=== PATIENT | female | born 1980 | race Caucasian/White ===

== ENCOUNTER 2020-11-01 15:18 | Outpatient (CLI) | payer OTHER, MEDICAID, SELFPAY ==
--- NOTE | ~2020-11-01 | MM_ITS ---
EXAMINATION: MM screening [facility] BI w max HISTORY: Screening mammogram TECHNIQUE: Craniocaudal and mediolateral oblique 3-D tomosynthesis images were obtained and synthetic 2-D images were generated. CAD analysis was submitted and interpreted. COMPARISON: 10/22/2019, 10/01/2019 BREAST PARENCHYMAL COMPOSITION: There are scattered areas of fibroglandular density. FINDINGS: There is been interval right breast biopsy. There is no evidence of suspicious mass, calcif ication, or architectural distortion to suggest malignancy in either breast. There has been no suspic ious interval change. IMPRESSION: 1. No mammographic evidence of malignancy. 2. Recommend routine screening mammography in one year. BI-RADS Category 1: Negative Reviewed, dictated and finalized at location A. STERED NURSE STEP DOWN
== END 2020-11-01 15:19 | disposition home or self-care (01) ==
LOC: ANHIMG 15:20
PROVIDERS: PCP Internal Medicine; Visit Provider Obstetrics & Gynecology
DX: Z12.31 Encounter for screening mammogram for malignant neoplasm of breast (principal)
CPT/HCPCS: 77063; 77067

== ENCOUNTER 2021-01-19 17:33 | Emergency (ER) | payer OTHER, MEDICAID, SELFPAY ==
[2021-01-19 17:41] VITALS: BP 187/85; PULSE 80; RESP 20; TEMP 37; O2SAT 100
--- NOTE | 2021-01-19 18:20 | ED.SKABFB ---
HPI - Skin/Abscess/Foreign Bdy General Chief complaint: Skin/Abscess/Foreign Body Stated complaint: RASH ON FACE Source: patient Mode of arrival: ambulatory Limitations: no limitations History of Present Illness HPI narrative: Patient is a 40-year-old female who presents complaining of a rash to left forehead x1 day. She reports itching and burning sensation. She denies all other complaints. She denies using [id number] for relief prior to arrival. She denies significant medical history. MD complaint: rash Related Data Home Medications Medication Instructions Recorded Confirmed Multiple Vitamin, Womens 1 tablet PO DAILY 09/21/19 09/24/19 lisdexamfetamine [Vyvanse] 50 mg PO DAILY 09/21/19 09/24/19 dextroamphetamine-amphetamine PO 01/19/21 Allergies Allergy/AdvReac Type Severity Reaction Status Date / Time No Known Allergies Allergy Unverified 09/24/19 10:37 Review of Systems Review of Systems: Narrative: CONSTITUTIONAL: Denies fever, chills, or sweats. EYES: Denies visual changes, redness, or discharge. ENT: Denies rhinorrhea, congestion, sore throat, or otalgia. CARDIOVASCULAR: Denies chest pain, palpitations, or edema. RESPIRATORY: Denies cough or dyspnea. GASTROINTESTINAL: Denies abdominal pain, nausea, vomiting, or diarrhea. GENITOURINARY: Denies dysuria or hematuria. SKIN: Rash to left forehead MUSCULOSKELETAL: Denies back pain, joint pain, or myalgia. NEUROLOGIC: Denies headache, numbness, dizziness, or weakness. PSYCHIATRIC: Denies anxiety or depression. [facility] Past Medical History Medical History Abnormal uterine bleeding Overweight (BMI 25.0-29.9) Family History Family History (Updated 01/19/21 @ 18:22 by OLIVER Mittal) Other No significant family history Social History Social History (Updated 01/19/21 @ 18:22 by OLIVER Mittal) Smoking status: Never smoker Alcohol intake: never Substance use: never Living arrangements: with family Gender identity (if verbalized by the patient): Female Exam Narrative: Exam Narrative: GENERAL: Well-appearing, well-nourished, and in no acute distress. HEAD: Normocephalic, atraumatic. EYES: EOMI. No redness or drainage. Conjunctiva are normal. ENT: Mucous membranes pink and moist. CHEST: No respiratory distress. HEART: Regular rate and rhythm. EXTREMITIES: Normal range of motion. No edema. SKIN: Cluster of fluid-filled blisters to left forehead NEURO: No focal deficits. Alert and oriented x3. Gait steady. PSYCH: Normal affect. No signs of depression or anxiety. Course Vital Signs Vital signs: Vital Signs Temperature 37.0 C 01/19/21 17:41 Pulse Rate 80 01/19/21 17:41 Respiratory Rate 20 01/19/21 17:41 Blood Pressure 187/85 H 01/19/21 17:41 Pulse Oximetry 100 01/19/21 17:41 Temperature 37.0 C 01/19/21 17:41 Pulse Rate 80 01/19/21 17:41 Respiratory Rate 20 01/19/21 17:41 Blood Pressure 187/85 H 01/19/21 17:41 Pulse Oximetry 100 01/19/21 17:41 Reviewed-patient is informed that they may have pre-hypertension or hypertension based on a blood pressure reading. I recommend the patient call the primary care provider listed on their discharge instructions or a physician of their choice this week to arrange follow-up for further evaluation of possible pre-hypertension or hypertension. MDM - Skin/Abscess/Foreign Bdy MDM Narrative Medical decision making narrative: Patient appears to have herpes zoster to left forehead. Discussed with patient starting medication, not touching eyes and to follow-up immediately if she feels redness or irritation to left eye. Patient agrees with plan of care. Prescription placed at this time. Patient is stable for discharge home with outpatient follow-up as discussed. Differential Diagnosis Differential diagnosis: Likely abscess of skin or subcutaneous tissue, herpes zoster, cellulitis, eczema, impetigo
== END 2021-01-19 18:23 | disposition home or self-care (01) ==
PROVIDERS: Emergency Provider Nurse Practitioner; PCP Internal Medicine
DX: B02.9 Zoster without complications (principal)
CPT/HCPCS: 99213; G0463

== ENCOUNTER 2021-01-20 11:49 | Emergency (ER) | payer OTHER, MEDICAID, SELFPAY ==
[2021-01-20 11:51] VITALS: BP 196/109; PULSE 85; RESP 16; TEMP 36.6; O2SAT 98
--- NOTE | 2021-01-20 12:32 | ED.EYEPROB ---
HPI - Eye Problem General Chief complaint: Eye Problems Stated complaint: shingles Time Seen by Provider: 01/20/21 12:17 Source: patient Mode of arrival: ambulatory Limitations: no limitations History of Present Illness HPI Narrative: Patient is a 40-year-old female complaining of pain around her eye, described as burning, accompanied by a mild rash, started 3 days ago, seen in urgent care was diagnosed with shingles, started on acyclovir yesterday. Patient denies any visual disturbance, such as blurred vision or loss of vision. Patient states that she is here because she was advised to come to the emergency room if pain persist. Related Data Home Medications Medication Instructions Recorded Confirmed Multiple Vitamin, Womens 1 tablet PO DAILY 09/21/19 09/24/19 dextroamphetamine-amphetamine PO 01/19/21 Allergies Allergy/AdvReac Type Severity Reaction Status Date / Time No Known Allergies Allergy Verified 01/20/21 11:58 Review of Systems Review of Systems: All systems reviewed & are unremarkable except as noted in HPI and below PMFSH Past Medical History Medical History Abnormal uterine bleeding Overweight (BMI 25.0-29.9) Family History Family History Other No significant family history Social History Social History Smoking status: Never smoker Alcohol intake: never Substance use: never Gender identity (if verbalized by the patient): Male Exam Const: General: no acute distress Orientation/consciousness: patient oriented x3 HENMT: Ears: TM's normal bilaterally General nose exam: Normal external nose present, Normal nares present, no nasal discharge noted and no epistaxis Face and sinus: sinuses tender and no sinus tenderness Mouth: Yes moist mucous membranes Other: No significant periorbital swelling or redness, very mild left upper lid swelling with erythema. Pain on palpation periorbital area. Eyes: Conjunctivae: conjunctivae normal Pupils: Equal, round and reactive pupils present EOM: EOMs intact bilaterally Direct Ophthalmoscopy: no photophobia Neck: Neck: normal visual inspection and no lymphadenopathy Resp: Effort & Inspection: normal respiratory effort Course Vital Signs Vital signs: Vital Signs Temperature 36.6 C 01/20/21 11:51 Pulse Rate 85 01/20/21 11:51 Respiratory Rate 16 01/20/21 11:51 Blood Pressure 196/109 H 01/20/21 11:51 Pulse Oximetry 98 01/20/21 11:51 Temperature 36.6 C 01/20/21 11:51 Pulse Rate 85 01/20/21 11:51 Respiratory Rate 16 01/20/21 11:51 Blood Pressure 196/109 H 01/20/21 11:51 Pulse Oximetry 98 01/20/21 11:51 MDM - Eye Problem MDM Narrative Medical decision making narrative: Pain is due to neuropathic pain from shingles, she does not have any visual changes or disturbance, 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 Discharge Plan Discharge Clinical Impression: Herpes zoster ophthalmicus of left eye Patient Disposition: Home, Self-Care Condition: Stable Instructions: Shingles (ED) Prescriptions: No Action dextroamphetamine-amphetamine 10 mg capsule,extended release 24hr PO RF: 0 acyclovir 800 mg tablet 800 mg PO Q4H 7 Days Qty: 42 RF: 0 Multiple Vitamin, Womens 1 tablet PO DAILY RF: 0 Follow-up/Referrals: Alize,Nolan Yuan MD [Primary Care Provider] - 01/22/21 Time of Disposition: 12:44
[2021-01-20] MEDS: KETOROLAC 30 MG/ML VIAL (*BKC) IM (12:49)
== END 2021-01-20 12:58 | disposition home or self-care (01) ==
PROVIDERS: Emergency Provider Emergency Medicine; PCP Internal Medicine
DX: B02.30 Zoster ocular disease, unspecified (principal); E66.3 Overweight; Z68.28 Body mass index [BMI] 28.0-28.9, adult
CPT/HCPCS: 96372; 99283; J1885

== ENCOUNTER 2021-08-05 15:15 | Emergency (ER) | payer OTHER, MEDICAID, SELFPAY ==
[2021-08-05 15:26] VITALS: BP 143/92; PULSE 77; RESP 16; TEMP 36.5; O2SAT 100
--- NOTE | 2021-08-05 15:26 | ED.URI ---
HPI - URI/Sore Throat General Chief Complaint: Upper Respiratory Infection Stated Complaint: sore throat Time Seen by Provider: 08/05/21 15:26 Source: patient and RN notes reviewed History of Present Illness HPI Narrative: Patient is a 40-year-old female who presents the urgent care with complaints of a sore throat for the last 3 days. 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 Patient denies of any known exposure to strep or Covid. States that she has not had her Covid vaccine. Denies of fever, chills, nausea, vomiting. Patient states her pain is worse when she wakes up and seems to improve throughout the day. Patient has not taken anything [id number] for her symptoms. No other acute complaints. No acute distress noted. Patient aware of the plan of care. Some parts of this dictation were generated by voice recognition software and may contain typographical and/or grammatical inaccuracies. Related Data Home Medications Medication Instructions Recorded Confirmed Multiple Vitamin, Womens 1 tablet PO DAILY 09/21/19 08/05/21 dextroamphetamine-amphetamine 10 mg PO DAILY 01/19/21 08/05/21 Allergies Allergy/AdvReac Type Severity Reaction Status Date / Time No Known Allergies Allergy Verified 08/05/21 15:23 Review of Systems Review of Systems: CONSTITUTIONAL: Denies fever, chills, or sweats. EYES: Denies visual changes, redness, or discharge. ENT: Denies rhinorrhea, congestion, otalgia. Reports of sore throat and postnasal drainage CARDIOVASCULAR: Denies chest pain, palpitations, or edema. RESPIRATORY: Denies cough or dyspnea. GASTROINTESTINAL: Denies abdominal pain, nausea, vomiting, or diarrhea. GENITOURINARY: Denies dysuria or hematuria. SKIN: Denies rash or itching. MUSCULOSKELETAL: Denies back pain, joint pain, or myalgia. NEUROLOGIC: Denies headache, numbness, or weakness. All other systems reviewed are negative, except as documented in HPI. [facility] Past Medical History Medical History Abnormal uterine bleeding Overweight (BMI 25.0-29.9) Surgical History Surgical History History of knee surgery Family History Family History Other No significant family history Social History Social History Smoking status: Never smoker Alcohol intake: never Substance use: never Gender identity (if verbalized by the patient): Male Comments At the time of my signature, I reviewed and agree with the nursing past medical, surgical, social, and family history. There is no relevant family history pertinent to the patient complaint. Exam Narrative: GENERAL: This is a well-nourished, well-developed patient, in no apparent distress. HEAD: normocephalic, atraumatic. EYES: PERRL. Sclera clear/white. Vision is grossly intact. EARS: External ears normal, auditory canals clear and without drainage, TMs normal without perforation. Hearing grossly intact. NOSE: External nose normal with no obvious nasal discharge, nares without redness, no rhinorrhea. THROAT: Mucous membranes moist, posterior pharynx clear. Mild postnasal drainage NECK: Neck supple, non-tender without lymphadenopathy, masses or thyromegaly. CARDIOVASCULAR: Regular rate and rhythm without murmurs, gallops, or rubs. RESPIRATORY: Clear to auscultation. Breath sounds equal bilaterally. No wheezes, rales, or rhonchi. SKIN: warm, intact with no suspicious lesions or rash, good texture and turgor. NEURO: awake, alert, and oriented to person, place and time. There were no obvious focal neurologic abnormalities. EXTREMITIES: No clubbing, cyanosis, or edema. No joint tenderness, effusion, or edema noted. No calf tenderness. Negative Homans sign bilaterally. BACK: Nontender without deformity or crepitance.
== END 2021-08-05 15:43 | disposition home or self-care (01) ==
PROVIDERS: Emergency Provider Nurse Practitioner Family; PCP Internal Medicine
DX: J02.9 Acute pharyngitis, unspecified (principal)
CPT/HCPCS: 87081; 87880; 99213; G0463

== ENCOUNTER 2021-11-22 16:28 | Outpatient (CLI) | payer OTHER, MEDICAID, SELFPAY ==
--- NOTE | ~2021-11-22 | MM_ITS ---
EXAMINATION: MM screening [facility] BI w max HISTORY: Screening mammogram TECHNIQUE: Craniocaudal and mediolateral oblique 3-D tomosynthesis images were obtained and synthetic 2-D images were generated. CAD analysis was submitted and interpreted. COMPARISON: 11/01/2020, 10/22/2019, 09/21/2019 BREAST PARENCHYMAL COMPOSITION: There are scattered areas of fibroglandular density. FINDINGS: RIGHT BREAST: There is no evidence of suspicious mass, calcification, or architectural distortion to suggest malignancy. There has been no significant interval change. LEFT BREAST: There is a possible mass in the middle third of the central breast 6 cm from the nipple. IMPRESSION: 1. Possible left breast mass 2. Additional mammographic views and possible breast ultrasound are recommended. BI-RADS Category 0: Incomplete: Needs additional imaging evaluation. Reviewed, dictated and finalized at location A. T PILE DRIVER OPERATOR IMPRESSION: 1. Possible left breast mass 2. Additional mammographic views and possible breast ultrasound are recommended . BI-RADS Category 0: Incomplete: Needs additional imaging evaluation.
== END 2021-11-22 16:29 | disposition home or self-care (01) ==
LOC: ANHIMG 16:30
PROVIDERS: PCP Internal Medicine; Visit Provider Obstetrics & Gynecology
DX: Z12.31 Encounter for screening mammogram for malignant neoplasm of breast (principal); R92.8 Other abnormal and inconclusive findings on diagnostic imaging of breast
CPT/HCPCS: 77063; 77067

== ENCOUNTER 2021-12-17 12:33 | Outpatient (CLI) | payer OTHER, MEDICAID, SELFPAY ==
--- NOTE | ~2021-12-17 | MMUS_ITS ---
EXAMINATION: MM diagnostic raad LT w max, US breast LT complete HISTORY: Follow-up left breast asymmetries TECHNIQUE: Additional 3-D tomosynthesis images of the left breast were performed and synthetic 2-D im ages were generated. CAD analysis was submitted and interpreted. High resolution left complete breast ultrasound was performed. COMPARISON: Comparison to multiple prior studies sequentially, with oldest reviewed study dated 09/17. BREAST PARENCHYMAL COMPOSITION: Breast composed of scattered areas of fibroglandular density. FINDINGS: MAMMOGRAPHIC FINDINGS: There are no suspicious masses, calcifications or architectural distortion. The nodular asymmetry see n on prior examination are not apparent with spot compression or mediolateral views. ULTRASOUND: Complete left US of all 4 quadrants of the left breast and retroareolar region was reviewed. Normal h eterogeneous echotexture without focal solid or cystic mass. IMPRESSION: 1. No evidence for malignancy in the left breast. 2. Routine yearly screening mammogram and regular clinical breast examination are recommended. BI-RADS Category 1: Negative Reviewed, dictated and finalized at location A. RSTATE BUS DRIVER IMPRESSION: 1. No evidence for malignancy in the left breast. 2. Routine yearly screening mammogram and regular clinical breast examination a re recommended. BI-RADS Category 1: Negative
== END 2021-12-17 12:34 | disposition home or self-care (01) ==
LOC: ANHIMG 12:34
PROVIDERS: PCP Internal Medicine; Visit Provider Obstetrics & Gynecology Gynecology
DX: R92.8 Other abnormal and inconclusive findings on diagnostic imaging of breast (principal)
CPT/HCPCS: 76641; 77061; 77065; G0279

== ENCOUNTER 2022-12-19 16:48 | Outpatient (CLI) | payer OTHER, MEDICAID, SELFPAY ==
--- NOTE | ~2022-12-19 | MM_ITS ---
EXAMINATION: MM screening [facility] BI w max HISTORY: Screening TECHNIQUE: Craniocaudal and mediolateral oblique 3-D tomosynthesis images were obtained and synthetic 2-D images were generated. CAD analysis was submitted and interpreted. COMPARISON: Comparison to multiple prior studies sequentially, with oldest reviewed study dated 09/17. BREAST PARENCHYMAL COMPOSITION: There are scattered areas of fibroglandular density. FINDINGS: There is no evidence of suspicious mass, calcification, or architectural distortion to sugg est malignancy in either breast. There has been no suspicious interval change. IMPRESSION: 1. No mammographic evidence of malignancy. 2. Recommend routine screening mammography in one year. BI-RADS Category 1: Negative Reviewed, dictated and finalized at location A. [place] SALES ASSOCIATE BILINGUAL
== END 2022-12-19 16:49 | disposition home or self-care (01) ==
PROVIDERS: PCP Internal Medicine; Visit Provider Nurse Practitioner
DX: Z12.31 Encounter for screening mammogram for malignant neoplasm of breast (principal)
CPT/HCPCS: 77063; 77067

== ENCOUNTER → 2023-08-12 15:55 | Outpatient (CLI) | payer OTHER, MEDICAID, SELFPAY ==
--- NOTE | ~2023-08-12 | MR_ITS ---
EXAMINATION: MR lumbar spine wo con DATE: 08/12/2023 16:27 INDICATION: Right-sided low back pain that radiates to the right hip. Right leg numbness. TECHNIQUE: Magnetic resonance imaging (MRI) of the lumbar spine was performed without intravenous con trast. Sequences included sagittal T2-weighted FSE, sagittal T2-weighted FS FSE, sagittal T1-weighted FSE, and axial T2-weighted FSE. COMPARISON: None FINDINGS: Bone alignment is normal. Vertebral body heights are normal. There is mildly decreased disc height at L5-S1. The distal spinal cord signal intensity is normal. The conus medullaris is at L2. T he following disc levels are specifically discussed: L1-L2: The disc does not extend beyond the endplate margin. There is mild bilateral facet joint osteo arthritis. There is no neural foraminal stenosis. There is no central canal stenosis. L2-L3: The disc is bulging and has an annular fissure. There is mild bilateral facet joint osteoarthr itis. There is mild bilateral neural foraminal stenosis. There is mild central canal stenosis. L3-L4: The disc is bulging and has an annular fissure. There is mild right and severe left facet join t osteoarthritis. There is mild bilateral neural foraminal stenosis. There is mild central canal sten osis. L4-L5: The disc is bulging and has an annular fissure. There is severe right and moderate left facet joint osteoarthritis. There is mild bilateral neural foraminal stenosis. There is mild central canal stenosis. L5-S1: The disc is bulging and has an annular fissure. There is moderate bilateral facet joint osteoa rthritis. There is mild bilateral neural foraminal stenosis. There is mild central canal stenosis. IMPRESSION: 1. Mild lumbar spondylosis. Reviewed, dictated and finalized at location E. IMPRESSION: 1. Mild lumbar spondylosis.
== END ==
PROVIDERS: PCP Nurse Practitioner Family; Visit Provider Nurse Practitioner Family
DX: M47.26 Other spondylosis with radiculopathy, lumbar region (principal)
CPT/HCPCS: 72148

== ENCOUNTER 2023-10-30 06:55 | Emergency (ER) | payer OTHER, MEDICAID, SELFPAY ==
[2023-10-30] VITALS (18 sets, daily range): BP systolic 163–232; BP diastolic 80–132; PULSE 80–106; RESP 13–32; O2SAT 96–100
--- NOTE | 2023-10-30 07:06 | ECG_ITS ---
Measurements Intervals [place] Rate: 79 P: 37 VT: 158 QRS: -2 QRSD: 82 T: 30 QT: 342 QTc: 394 Interpretive Statements SINUS RHYTHM NORMAL ECG NO PREVIOUS ECG AVAILABLE FOR COMPARISON Electronically Signed On 10-30-2023 14:01:55 DIGITAL STRATEGIST by Thiago Villasenor M.D.
--- NOTE | 2023-10-30 07:23 | ED.GENADULT ---
HPI - General Adult General Chief complaint: Recheck/Abnormal Lab/Rx Stated complaint: high blood pressure Time Seen by Provider: 10/30/23 07:02 History of Present Illness HPI narrative: 43-year-old female presenting to the emergency department for complaint of hypertension. Patient does have history of high blood pressure and does take losartan. Patient normally takes 25 mg of losartan at nighttime. Patient noticed that her blood pressures have been running higher over the past few days. Patient was told to double up her dose last night and when she woke up this morning she found that her blood pressure was elevated. Patient does complain of some chest tightness. Patient denies any prior history of PR. Patient does not recall ever having a stress test. Related Data Home Medications Medication Instructions Recorded Confirmed Multiple Vitamin, Womens 1 tablet PO DAILY 09/21/19 08/05/21 dextroamphetamine-amphetamine ER 10 mg PO DAILY 01/19/21 08/05/21 10 mg 24hr capsule,extend release Allergies Allergy/AdvReac Type Severity Reaction Status Date / Time No Known Allergies Allergy Verified 08/05/21 15:23 Review of Systems Review of Systems: All systems reviewed & are unremarkable except as noted in HPI and below PMFSH Past Medical History Medical History Abnormal uterine bleeding Overweight (BMI 25.0-29.9) Surgical History Surgical History History of knee surgery Family History Family History Other No significant family history Social History Social History Smoking status: Never smoker Alcohol intake: never Substance use: never Living arrangements: with family Gender identity (if verbalized by the patient): Male Exam Narrative: APPEARANCE: Well appearing, no pain, no distress, well-nourished. HEAD: normocephalic, atraumatic. EYES: PERRLA/EOMI, conjunctivae clear. NOSE: Normal no drainage EARS:TMS clear with good light reflex. THROAT: Pharynx clear, no exudate. NECK: Supple. No adenopathy, no masses. RESPIRATORY: Airway patent, respirations nonlabored. Clear to auscultation bilaterally, no rales, rhonchi, wheezing. CARDIOVASCULAR: Regular rate and rhythm without murmurs rubs or gallops. ABDOMINAL: Soft, nontender, nondistended, normal bowel sounds MUSCULOSKELETAL: Moves all extremities. Strength/ROM intact, No edema, No calf tenderness. NEURO: Alert. Cranial nerves II through XII intact. Grossly intact SKIN: Warm, dry. Normal Color Course Course Emergency Course: 43-year-old female presents to the emergency department for evaluation of elevated blood pressure. Patient's EKG shows no evidence acute STEMI and patient had negative serial troponins. Patient is afebrile with no leukocytosis and a stable hemoglobin. No significant electrolyte abnormalities. patient was treated with hydrochlorothiazide and this did help her blood pressure. Patient was also treated with Ativan for some underlying anxiety. Patient was negative for influenza RSV and for COVID. I discussed the case with the physician on-call for her primary care physician and he did recommend starting the patient on amlodipine. Patient's 1st dose was given in the ED. patient was updated on the results of her workup and the plan for treatment at home. Patient was comfortable with the plan for discharge and close follow-up. Vital Signs Vital signs: Vital Signs Pulse Oximetry 99 10/30/23 07:02 Pulse Rate 106 H 10/30/23 13:00 Respiratory Rate 19 10/30/23 13:00 Blood Pressure 167/80 H 10/30/23 13:00 Pulse Oximetry 98 10/30/23 13:00 Oxygen Delivery Room Air 10/30/23 07:25 Medical Decision Making Differential Diagnosis Differential Diagnosis: hypertensive emergency, hypertensive anisha
[2023-10-30] MEDS: hydrALAZINE HCL 20 MG/ML VIAL 10 MG IV PUSH ×2 (07:50→10:41)
[2023-10-30 07:53] LABS: Basophils Absolute Auto 0.1 K/mm3 (0.0-0.1); Basophils Percent Auto 0.9 % (0.2-1.2); Eosinophils Absolute Auto 0.2 K/mm3 (0-0.3); Eosinophils Percent Auto 3.5 % (0-4.4); Hematocrit 40.8 % (37.0-47.0); Hemoglobin 13.7 g/dL (12.0-15.0); Immature Granulocyte Absolute 0.01 K/mm3 (0.00-0.031); Immature Granulocyte Percent A 0.2 % (0-0.5); Lymphocytes Absolute Auto 1.74 K/mm3 (0.9-3.2); Lymphocytes Percent Auto 32.2 % (18.3-44.2); Mean Corpuscular HGB Conc 33.6 g/dl (32-36); Mean Corpuscular Hemoglobin 32.5 pg (26-34); Mean Corpuscular Volume 96.9 fl (80-100); Mean Platelet Volume 8.6 fl (7.4-10.4); Monocytes Absolute Auto 0.4 K/mm3 (0.1-0.6); Monocytes Percent Auto 7.8 % (2.6-8.5); Neutrophils Percent Auto 55.4 % (45.5-73.1); Platelet Count Result 395 k/mm3 (150-375); Red Blood Count 4.21 M/mm3 (4.2-5.4); Red Cell Distribution Width 11.9 % (11.5-14.5); White Blood Count 5.4 K/mm3 (4.5-10.0)
[2023-10-30 07:53] LABS: Influenza A QL RT-PCR Negative (Negative); Influenza B QL RT-PCR Negative (Negative); RSV RNA, RT-PCR Negative (Negative); SARS-CoV-2 RNA PCR Negative (Negative)
[2023-10-30 07:58] LABS: INR 0.8; Prothrombin Time 11.8 Seconds (11.1-14.7)
[2023-10-30 07:59] LABS: Partial Thromboplastin Time 25.8 SECONDS (22.3-36.8)
[2023-10-30 08:36] LABS: Alanine Aminotransferase 25 U/L (6-35); Albumin Level 3.9 g/dL (3.5-5.1); Alkaline Phosphatase 54 U/L (38-126); Anion Gap 6 mmol/L (8-16); Aspartate Amino Transferase 27 U/L (14-36); Bilirubin,Total 0.7 mg/dL (0.2-1.3); Blood Urea Nitrogen 15 mg/dL (7-17); Carbon Dioxide 26 mmol/L (22-30); Chloride 106 mmol/L (98-107); Estimated CRCL calculation 66 ml/min; Estimated Glomerular Filt Rate > 60; Glucose 97 mg/dL (65-110); Potassium 4.1 mmol/L (3.4-5.0); Sodium 138 mmol/L (137-145)
[2023-10-30 08:47] LABS: Troponin I < 0.012 ng/mL (0.000-0.034)
[2023-10-30 09:04] LABS: Appearance Urine Clear (Clear); Bacteria Urine None Seen /hpf; Bilirubin Urine Negative (Negative); Blood Urine 3+ (Negative); Color Urine Yellow (Yellow); Glucose Urine UA Negative (Negative); Ketones Urine Negative (Negative); Leukocyte Esterase Ur Negative LEU/UL (Negative); Nitrate Urine Negative (Negative); Non Pathogenic Casts 0-2; Protein Urine Negative (Negative); RBC Urine >100 /hpf (0-2); Squamous Epithelial Cell Urine None seen /hpf (Few); Urobilinogen Urine 0.2 mg/dL (<2.0); WBC Urine 0-5 /hpf; pH Urine 6.5 (5.0-9.0)
[2023-10-30 09:16] LABS: Add Urine Microscopic? YES
[2023-10-30] MEDS: amLODIPine BESYLATE 5 MG TABLET PO (09:39)
--- NOTE | 2023-10-30 11:30 | PC.NURSE ---
pt c/o feeling flushed and having headache. pt crying. ativan sangita per order.
[2023-10-30] MEDS: LORazepam (*CRX) 1 MG TABLET PO (11:32)
[2023-10-30 11:48] LABS: Troponin I < 0.012 ng/mL (0.000-0.034)
== END 2023-10-30 13:01 | disposition home or self-care (01) ==
PROVIDERS: Emergency Provider Emergency Medicine; PCP Nurse Practitioner Family
DX: I10 Essential (primary) hypertension (principal); Z20.822 Contact with and (suspected) exposure to COVID-19; E66.3 Overweight; Z68.28 Body mass index [BMI] 28.0-28.9, adult
CPT/HCPCS: 36415; 80053; 81001; 84484; 85025; 85610; 85730; 87637; 93005; 96374; 96376; 99284; A9270; J0360

== ENCOUNTER 2024-02-02 15:42 | Outpatient (CLI) | payer OTHER, MEDICAID, SELFPAY ==
--- NOTE | ~2024-02-02 | MM_ITS ---
EXAMINATION: MM screening [facility] BI w max HISTORY: Screening TECHNIQUE: Craniocaudal and mediolateral oblique 3-D tomosynthesis images were obtained and synthetic 2-D images were generated. CAD analysis was submitted and interpreted. COMPARISON: Comparison to multiple prior studies sequentially, with oldest reviewed study dated 09/17. BREAST PARENCHYMAL COMPOSITION: Not dense: There are scattered areas of fibroglandular density. FINDINGS: There is no evidence of suspicious mass, calcification, or architectural distortion to sugg est malignancy in either breast. There has been no suspicious interval change. IMPRESSION: 1. No mammographic evidence of malignancy. 2. Recommend routine screening mammography in one year. BI-RADS Category 1: Negative Reviewed, dictated and finalized at location A.
== END 2024-02-02 15:43 ==
LOC: MICIMG 15:44
PROVIDERS: PCP Nurse Practitioner Family; Visit Provider Obstetrics & Gynecology Gynecology
DX: Z12.31 Encounter for screening mammogram for malignant neoplasm of breast (principal)
CPT/HCPCS: 77063; 77067

== ENCOUNTER 2025-02-04 10:32 | Outpatient (CLI) | payer OTHER, MEDICAID, SELFPAY ==
--- NOTE | ~2025-02-04 | MM_ITS ---
EXAMINATION: MM screening [facility] BI w max HISTORY: Screening TECHNIQUE: Craniocaudal and mediolateral oblique 3-D tomosynthesis images were obtained and synthetic 2-D images were generated. CAD analysis was submitted and interpreted. COMPARISON: Comparison to multiple prior studies sequentially, with oldest reviewed study dated 10/17. BREAST PARENCHYMAL COMPOSITION: Not Dense: The breasts are almost entirely fatty. FINDINGS: There is no evidence of suspicious mass, calcification, or architectural distortion to sugg est malignancy in either breast. There has been no suspicious interval change. IMPRESSION: 1. No mammographic evidence of malignancy. 2. Recommend routine screening mammography in one year. BI-RADS Category 1: Negative Reviewed, dictated and finalized at location B.
== END 2025-02-04 10:33 | disposition home or self-care (01) ==
LOC: MICIMG 10:33
PROVIDERS: PCP Nurse Practitioner Family; Visit Provider Nurse Practitioner Women's Health
DX: Z12.31 Encounter for screening mammogram for malignant neoplasm of breast (principal)
CPT/HCPCS: 77063; 77067

== ENCOUNTER 2025-08-24 01:55 | Emergency (ER) | payer OTHER, MEDICAID, SELFPAY ==
--- OUTSIDE RECORDS SUMMARY | 2024-03-22 08:00 | XMS_ITS ---
Author Organization [facility] Address [address] [place] [address] Care Team Providers Care Logistics Account Manager Name Role Phone Britany Mckinley Primary Care Provider IgorKirsten morataya Andressa [phone] REASON FOR VISIT 3 Month Psych F/U & Med Refill Encounters Encounter Location Date Provider Diagnosis [address] [place] [address] 03/22/2024 Britany Mckinley Plan Of Treatment No Information Progress Notes * Rose PERSAUD MDOB:[birth year] (44 yo F)Acc No.[id number]:03/22/2024 UNLOCKED PROGRESS NOTE Patient: Rose PHILLIPS Provider: TEO Ch, JACK OF ALL TRADES-BC, PMHNP-BC :1980 A ge:43 Y S ex:Female Date:03/22/2024 [facility] [id number] Subjective: * Chief Complaints: * 1 . 3 Month Psych F/U & Med Refill. * Medical History: Objective: * Vitals: Assessment: Plan: * Treatment: * * Electronic signature of Britany Mckinley , [id number] on 08/24/2025 at 01:57 AM CDT Sign off status: Pending * Provider: TEO Ch, JACK OF ALL TRADES-BC, PMHNP-BC Date: 0 03/22/2024 Generated for Tim fall/Stephenie/eTransmitting on: 1 01:57 AM CDT
--- OUTSIDE RECORDS SUMMARY | 2025-08-24 01:57 | XMS_ITS | Encounter Summary ---
Author Organization [facility] Healthcare Address [address] [place] [address] Care Team Providers Care Respiratory Scientist Name Role Phone Migdalia Mcdonald NP Primary Care Provider Shira Campbell MD Unavailable Kirsten Pena NP Unavailable [phone] Delfino Pozo MD Unavailable Mike Rhoades MD Unavailable [phone] Encounter Details Date Type Department Care Team (Latest Contact Info) Description 08/09/2025 Results Follow-Up [facility] Medical Group Primary Care at [address] [address] Migdalia Mcdonald NP [address] [place] [address] [address] [place] [address] CBC with auto differential, Comprehensive metabolic panel, Lipid panel, Additional followed-up results: 3 Social History Tobacco Use Types Packs/Day Years Used Date Smoking Tobacco: Never Passive Smoke Exposure: Never Smokeless Tobacco: Never Alcohol Use Standard Drinks/Week Comments Yes 0 (1 standard drink = 0.6 oz pur e alcohol) PHQ-2 Answer Date Recorded PHQ-2 Total Score (If total score is 3 or more points, staff should administer the PHQ-9) 0 06/03/2025 AUDIT-C Answer Date Recorded Q1: How often do you have a drink containing alc ohol? Monthly or less 07/15/2025 Q2: How many drinks containi ng alcohol do you have on a typical day when you are drinking? 1 or 2 07/15/2025 Q3: How often do you have si x or more drinks on one occasion? Never 07/15/2025 Hunger Vital Sign Answer Date Recorded Within the past 12 months, y ou worried that your food would run out before you got the money to buy more. Never true 07/15/20 25 Within the past 12 months, t he food you bought just didn't last and you didn't have money to get more. 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 Blood levels look good. Let's evaluatethe bruising at upcoming appt. documented in this encounter Plan of Treatment Not on file documented as of this encounter Goals Goal Patient Goal Type Associated Problems Recent Progress Patient-Stated? Author CCM Chronic Pain Care Plan Chronic Care Management No change(08/15 3:49 PM CDT) No Paco Jackson RN Note: Problem: Chronic Pain Goals: 1. Minimize further functional decline 2. Maximize quality of life 3. Control pain Strategies: - Activity/exercise program recommendation - Conservative stepwise pain medicine strategy with multi-disciplinary approach - Recommend healthy lifestyle strategies and compensatory methods as needed documented as of this encounter Visit Diagnoses Not on filedocumented in this encounter Care Teams Respiratory Scientist Relationship Specialty Start Date End Date Migdalia Mcdonald NP [address] [address] PCP - General Family Medicine 11/22/22 Shira Campbell MD [address] [facility] [address] [place] [address] Referring Physician Gynecology 11/22/22 Kirsten Pena NP [address] [facility] [place] [address] Nurse Practitioner Psychiatry 11/22/22 Delfino Pozo MD [address] [facility], [facility] [address] [place] [address] Consulting Physician Pain Management 09/12/23 Mike Rhoades MD [address] [facility] [address] [place] [address] Consulting Physician Family Medicine 10/24/23 documented as of this encounter
--- OUTSIDE RECORDS SUMMARY | 2025-08-24 01:58 | XMS_ITS | Encounter Summary ---
Author Organization [facility] Healthcare Address [address] [place] [address] Care Team Providers Care Digital X Ray Service Engineer Name Role Phone Migdalia Mcdonald NP Primary Care Provider [phone] Shira Campbell MD Unavailable [phone] Kirsten Pena NP Unavailable [phone] Delfino Pozo MD Unavailable Mike Rhoades MD Unavailable [phone] Encounter Details Date Type Department Care Team (Late st Contact Info) Description 08/19/2025 Results Follow-Up [facility] Medical Group Primary Care at [address] [address] Rose Caballero NP [address] [place] [address] [address] [place] [address] Protime-INR, aPTT Social History Tobacco Use Types Packs/Day Years Used Date Smoking Tobacco: Never Passive Smoke Exposure: Never Smokeless Tobacco: Never Alcohol Use Standard Drinks/Week Comments Yes 0 (1 standard drink = 0.6 oz pur e alcohol) PHQ-2 Answer Date Recorded PHQ-2 Total Score (If total score is 3 or more points, staff should administer the PHQ-9) 0 08/19/2025 AUDIT-C Answer Date Recorded Q1: How often do you have a drink containing alc ohol? Monthly or less 08/19/2025 Q2: How many drinks containi ng alcohol do you have on a typical day when you are drinking? 1 or 2 08/19/2025 Q3: How often do you have si x or more drinks on one occasion? 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 Monthly or less 08/19/2025 8:54 AM CDT Gonzalez Zayas MA Q2: How many drinks containing alcohol do you have on a typical day when you are drinking? 1 or 2 08/19/2025 8:54 AM SHEEBAT Gonzalez Zayas MA Q3: How often do you have six or more drinks on one occasion? Never 08/19/2025 8:54 AM SHEEBAT Gonzalez Zayas MA documented as of this encounter Plan of Treatment Not on file documented as of this encounter Goals Goal Patient Goal Type Associated Problems Recent Progress Patient-Stated? Author [facility] Chronic Pain Care Plan Chronic Care Management [...] on filedocumented in this encounter Care Teams Digital X Ray Service Engineer Relationship Specialty Start Date End Date Migdalia Mcdonald NP [address] [facility] [address] [place] [address] PCP - General Family Medicine 11/22/22 Shira Campbell MD [address] [facility] [address] [place] [address] Referring Physician Gynecology 11/22/22 Kirsten Pena [employer] [address] [place] [address] Nurse Practitioner Psychiatry 11/22/22 Delfino Pozo MD [address] [facility] [address] Consulting Physician Pain Management 09/12/23 Mike Rhoades MD [address] [facility] [address] [place] [address] Consulting Physician Family Medicine 10/24/23 documented as of this encounter
--- OUTSIDE RECORDS SUMMARY | 2025-08-24 01:58 | XMS_ITS | Patient Health Record ---
Author Organization [facility] Address [address] [place] [address] Care Team Providers Care Hat Blocker Name Role Phone Britany Mckinley Primary Care Provider Kirsten Pena [phone] Allergies No Known Allergies Reason For Referral No Information Medications Medication SIG (Take, Route, Frequency, Duration) Notes Start Date End Date Status Adderall XR 20 MG 1 capsule in the mor vignesh Orally Once a day; Duration: 30 days Active 1.5-30 MG-MCG 1 tablet Orally Once a day A ctive Social History Tobacco Use: Social History Observation Description Date Details (start date - stop date) Never Smoker NA - NA Dont use, Tobacco Use/Smoking Question Answer Notes Are you a nonsmoker Section Notes: PRESCRIPTION # FILLED WRITTEN DRUG LABEL QTY DAYS STRENGTH MEDD PRESCRIBER PHARMACY REFILL NO. REFILLS STATE 11/05/2022 11/05/2022 Amphet Asp/amphet/d-amphet 30.0 30 15 MG NA Kirsten Pena ([facility]) - [id number] [id number], [place], [place] NA 0 [place] 1 [id number] 08/13/2022 08/08/2022 Amphet Asp/amphet/d-amphet 30.0 30 15 MG NA Kirsten Pena ([facility]) - [id number] [facility] # [id number], [place], [place] NA 0 [place] 1 [id number] 07/16/2022 07/16/2022 Amphet Asp/amphet/d-amphet 30.0 30 15 MG NA Jean Kirsten J ( PRESCRIPTION # FILLED WRITTEN DRUG LABEL QTY DAYS STRENGTH MME PRESCRIBER PHARMACY REFILL NO. REFILLS STATE 05/14/2023 05/14/2023 Dextroamp-amphet Er 30.0 30 20 MG NA Britany Mckinley [facility] - [id number] [facility] # [id number], [place], [place] NA 0 [place] 1 [id number] 03/17/2023 03/17/2023 Amphet Asp/amphet/d-amphet 30.0 30 20 MG NA Britany Mckinley [facility] - [id number] [facility] # [id number], [place], [place] NA 0 [place] 1 [id number] 02/06/2023 02/06/2023 Amphet Asp/amphet/d-amphet 30.0 30 15 MG NA Britany Mckinley [facility] - [id number] [facility] # [id number], [place] 0 [place] 2 [id number] 11/05/2022 11/05/2022 Amphet Asp/amphet/d-amphet 30.0 30 15 MG NA Pacini, Kirsten J (Electrophonic Engineer PRESCRIPTION # FILLED WRITTEN DRUG LABEL QTY DAYS STRENGTH MEDD PRESCRIBER PHARMACY REFILL NO. REFILLS STATE 02/06/2023 02/06/2023 Amphet Asp/amphet/d-amphet 30.0 30 15 MG NA Britany Mckinley [facility] - [id number] [facility] # [id number], [place] 1 [id number] 11/05/2022 11/05/2022 Amphet Asp/amphet/d-amphet 30.0 30 15 MG NA Pacini, Kirsten J ([facility] - [id number] [facility] # [id number], [place], [place] NA 0 [place] 1 [id number] 08/13/2022 08/08/2022 Amphet Asp/amphet/d-amphet 30.0 30 15 MG NA Pacini, Kirsten J (Electrophonic Engineer PRESCRIPTION # FILLED WRITTEN DRUG LABEL QTY DAYS STRENGTH MME PRESCRIBER PHARMACY REFILL NO. REFILLS STATE 03/17/2023 03/17/2023 Amphet Asp/amphet/d-amphet 30.0 30 20 MG NA Britany Mckinley [facility] - [id number] [facility] # [id number], [place] 1 [id number] 02/06/2023 02/06/2023 Amphet Asp/amphet/d-amphet 30.0 30 15 MG NA Britany Mckinley [facility] - [id number] [facility] # [id number], [place], [place] NA 0 [place] 2 [id number] 11/05/2022 11/05/2022 Amphet Asp/amphet/d-amphet 30.0 30 15 MG NA Zev Pena PRESCRIPTION # FILLED WRITTEN DRUG LABEL QTY DAYS STRENGTH MME PRESCRIBER PHARMACY REFILL NO. REFILLS STATE 08/05/2023 08/05/2023 Amphet Asp/amphet/d-amphet 30.0 30 20 MG NA Britany Mckinley [facility] - [id number] [facility] # [id number], [place] 0 [place] 1 [id number] 07/10/2023 07/10/2023 Cyclobenzaprine Hcl 90.0 30 5 MG NA [facility] [id number] [facility], [place] NA 0 [place] 1 [id number] 07/08/2023 07/01/2023 Amphet Asp/amphet/d-amphet 30.0 30 20 MG NA Britany Mckinley [facility] - [id number] [facility] # [id number], [place], [place] NA 0 [place] 1 [id number] 06/11/2023 04/22/2023 Amphet Asp/amphet/d-amphet 30.0 30 20 MG NA Britany Mckinley Electrophonic Engineer - [id number] PRESCRIPTION # FILLED WRITTEN DRUG LABEL QTY DAYS STRENGTH MME PRESCRIBER PHARMACY REFILL NO. REFILLS STATE 06/11/2023 04/22/2023 Amphet Asp/amphet/d-amphet 30.0 30 20 MG NA Britany Mckinley [facility] - [id number] [facility] # [id number], [place], [place] NA 0 [place] 1 [id number] 05/14/2023 05/14/2023 Dextroamp-amphet Er 30.0 30 20 MG NA Arlen Britany Cano [facility] - [id number] [facility] # [id number], [place], [place] NA [place] 1 [id number] 03/17/2023 03/17/2023 Amphet Asp/amphet/d-amphet 30.0 30 20 MG NA ArlenBritany connell PRESCRIPTION # FILLED WRITTEN DRUG LABEL QTY DAYS STRENGTH MME PRESCRIBER PHARMACY REFILL NO. REFILLS STATE 08/05/2023 08/05/2023 Amphet Asp/amphet/d-amphet 30.0 30 20 MG NA Arlen Britany Cano [facility] - [id number] [facility] # [id number], [place], [place] NA [place] 1 [id number] 07/10/2023 07/10/2023 Cyclobenzaprine Hcl 90.0 30 5 MG NA Mcdonald [facility] [id number] [facility], [place] NA 0 [place] 1 [id number] 07/08/2023 07/01/2023 Amphet Asp/amphet/d-amphet 30.0 30 20 MG NA Arlen Britany Cano [facility] - [id number] [facility] # [id number], [place] 1 [id number] 06/11/2023 04/22/2023 Amphet Asp/amphet/d-amphet 30.0 30 20 MG NA Britany Mckinley [facility] - [id number] PRESCRIPTION # FILLED WRITTEN DRUG LABEL QTY DAYS STRENGTH MME PRESCRIBER PHARMACY REFILL NO. REFILLS STATE 10/08/2023 10/06/2023 tiZANidine HCL 90.0 30 4 MG NA Ele Pozo Md - [id number] [facility] # [id number], [place], [place] NA 0 [place] 1 [id number] 10/05/2023 09/29/2023 Adderall Xr 30.0 30 20 MG NA Britany Mckinley [facility] - [id number] [facility] # [id number], [place], [place] NA [place] 1 [id number] 09/12/2023 09/12/2023 tiZANidine HCL 90.0 30 4 MG NA Ele Pozo Md [id number] [facility] # [id number], [place], [place] NA [place] 1 [id number] 09/04/2023 09/02/2023 Adderall Xr 30.0 30 20 MG NA Britany Mckinley Electrophonic Engineer - [id number] PRESCRIPTION # FILLED FREDRICK N DRUG LABEL QTY DAYS STRENGTH MME PRESCRIBER PHARMACY REFILL NO. 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
--- OUTSIDE RECORDS SUMMARY | 2025-08-24 01:58 | XMS_ITS | Clinical Summary ---
Author Organization [facility] Address [address] [place] [id number] Care Team Providers Care Dolphin Researcher Name Role Phone Migdalia Mcdonald NP Primary Care Provider [phone] Shira Campbell MD Unavailable [phone] Kirsten Pena NP Unavailable [phone] Delfino Pozo MD Unavailable Mike Rhoades MD Unavailable [phone] Allergies Active Allergy Reactions Criticality Noted Date Comments Gabapentin Dizziness Low 09/12/2023 Morphine Hallucinations Medium 06/14/20221993 Medications , 1 mg-20 mcg (21)/75 mg (7) per tablet Take 1 tablet by mouth daily 023 Active famotidine (Pepcid) 20 mg tablet Take 1 tablet (20 mg total) by mouth 2 (two) times a day as needed (with NSAID) 60 tablet 023 Active magnesium oxide 400 mg magnesium capsule Take 800 mg by mouth daily Active NOT IN DATABASE, PRESCRIPTION, Take 5,000 mg by mouth 3 (three) times a day Drug name: Hair skin and nails biotin Dose: 5000 mg Route: oral Frequency: tid Active esomeprazole DR (NexIUM) 20 mg capsule Take 1 capsule (20 mg total) by mouth daily as needed (acid reflux) Active calcium citrate-vitamin D3 250 mg-5 mcg (200 unit) tablet Take by mouth Active NOT IN DATABASE, PRESCRIPTION, Drug name: pycnogenol Dose: 60mg Active tiZANidine (ZANAFLEX) 4 mg tabletIndications :Muscle Spasm Take 1 tablet (4 mg total) by mouth every 8 (eight) hours as needed for muscle spasms 90 tablet 025 Active progesterone (PROMETRIUM) 200 mg capsule Take by mouth daily 025 Active estradioL (ESTRACE) 1 mg tablet TAKE 1 AND 1/2 TABLET BY MOUTH EVERY DAY 025 Active naproxen (NAPROSYN) 500 mg tabletIndications :Chronic lumbar radiculopathy,Cricket tral annular tear of intervertebral disc Take 1 tablet (500 mg total) by mouth 2 (two) times a day as needed for pain 180 tablet 3 025 Active dextroamphetamine -amphetamine XR (ADDERALL XR) 25 mg 24 hr capsule Take 1 capsule (25 mg total) by mouth every morning 30 capsule 025 Active traZODone (DESYREL) 50 mg tablet Take 1 tablet (50 mg total) by mouth nightly 025 Active dextroamphetamine -amphetamine (ADDERALL) 10 mg tabletIndications :Attention deficit hyperactivity disorder (ADHD), combined type Take 1 tablet (10 mg total) by mouth daily Before 3pm daily 30 tablet 025 Active losartan (COZAAR) 100 mg tablet Take 1 tablet (100 mg total) by mouth daily 90 tablet 3 025 Active amLODIPine (NORVASC) 5 mg tablet Take 1 tablet (5 mg total) by mouth daily 90 tablet 1 025 2024 Discontinued losartan (COZAAR) 50 mg tablet TAKE 1 TABLET BY MOUTH EVERY DAY 90 tablet 025 2024 Discontinued dextroamphetamine -amphetamine (AdderalL) 5 mg tablet Take 1 tablet (5 mg total) by mouth daily In the early afternoon 30 tablet 025 2024 Discontinued(R eorder) dextroamphetamine -amphetamine XR (ADDERALL XR) 25 mg 24 hr capsule Take 1 capsule (25 mg total) by mouth every morning 30 capsule 025 2024 Discontinued(R eorder) dextroamphetamine -amphetamine (AdderalL) 5 mg tablet Take 1 tablet (5 mg total) by mouth daily In the early afternoon 30 tablet 025 2024 Discontinued(P atient Reported) amLODIPine (NORVASC) 5 mg tablet TAKE 1 TABLET (5 MG TOTAL) BY MOUTH DAILY. 30 tablet 5 025 2024 Discontinued(P atient Reported) Active Problems Problem Noted Date Diagnosed Date Lumbar facet arthropathy 07/24/2025 Chronic bilateral low back pain 07/24/2025 Annual physical exam 12/02/2024 Assessment & Plan (12/02/2024 10:45 AM PROTOHISTORIAN): A(n) yearly well adult visit has been performed today. Rose Pedraza is not up to date on screening tests. She is in need of Hepatitis B and Hepatitis C screening. Mammogram scheduled in January. She is up to date on needed preventative vaccinations;. We discussed healthy lifestyle habits, educational material has been given. Medications reviewed, changes documented as per the medical record and discussed with patient along with risks vs benefits. Specific topics reviewed: drugs, ETOH, and tobacco, importance of regular dental care, importance of regular exercise, importance of varied diet, limit TV, media violence, minimize junk food, and seat belts. Return in 1 month (with Migdalia) Elevated cortisol level 03/19/2024 Assessment & Plan (03/19/2024 11:03 AM CDT): Random elevated serum cortisol level ROS ++ Multiple nonspecific symptoms Did not appreciate prominent physical findings of Knott's Will order screening test for Knott's syndrome to reassure patient We will check a 24 hour urine cortisol levels Late night saliva cortisol level And low-dose dexamethasone suppression test All pertinent labs were ordered and prescription for dexamethasone were sent to patient pharmacy and instructions to patient given both verbal and written. Further plan after reviewing lab results Primary hypertension 05/02/2023 Assessment & Plan (01/07/2025 12:12 PM PROTOHISTORIAN): BP ok in office, home bp's have been averaging 120's/80's. Patient experiencing peripheral edema, suspect it is r/t the Amlodipine--will decrease to 5 mg and see if sx improve. If BP starts to increase we can adjust the Losartan. Assessment & Plan (06/25/2024 9:32 AM CDT): BP well controlled, continuing Amlodipine and Losartan. Updated labs ordered. Assessment & Plan (11/14/2023 10:23 AM PROTOHISTORIAN): Home BP's ranging 120-130's/80's. Much improved, 118/78 in office. Will continue the Losartan 50 mg and Amlodipine 10 mg, patient may resume her Adderall per her Psychiatrist. Assessment & Plan (11/03/2023 4:53 PM PROTOHISTORIAN): Home BP's 150's/100's, BP starting to trend down, asymptomatic minus fatigue. Has been on increased Losartan (50 mg) and Amlodipine 5 mg x 3-4 days. Will have pt continue current dosages, home BP's this for likely increase and follow up in 1 week. Assessment & Plan (07/10/2023 11:07 AM CDT): Home BP's still ranging 130/80's or less BP increased in office today, likely related to pain and white coat. Patient to continue monitoring home BP's, continuing Losartan 25 mg Assessment & Plan (06/06/2023 11:22 AM CDT): Home BP's ranging 130's/80's or less. Continues Losartan 25 mg daily. Assessment & Plan (05/02/2023 11:37 AM CDT): Home BP's ranging 130-150/80-90 Will start Losartan 25 mg daily, home BP logs and follow up in 4 weeks. Asymptomatic. Attention deficit disorder (ADD) 11/22/2022 Assessment & Plan (08/19/2025 9:22 AM CDT): Orders: dextroamphetamine-amphetamine (ADDERALL) 10 mg tablet; Take 1 tablet (10 mg total) by mouth daily Before 3pm daily Assessment & Plan (01/07/2025 12:11 PM PROTOHISTORIAN): Overall stable onf Adderall XR 25 mg daily and 5 mg IR Adderall. Assessment & Plan (06/25/2024 9:33 AM CDT): Adderall XR not working as well as it had been in the past. Not last long either. Will increase the XR to 25 mg and add in IR 5 mg Adderall for the early afternoon. Patient to update me in 4 weeks. Assessment & Plan (11/22/2022 1:00 PM PROTOHISTORIAN): Stable on Adderall 15 mg, follows with Dr Pena (Psych) and [facility]. 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 Cervicalgia 10/22/2011 Resolved Problems Problem Noted Date Diagnosed Date Resolved Date Headache 10/26/2021 08/19/2025 Encounters Date Type Department Care Team Description 08/19/2025 9:30 AM CDT Lab [address] [address] Bru[place] 08/19/2025 9:00 AM CDT Office Visit [facility] Primary Care at [address] [phone] Rose Caballero NP BMI 27.0-27.9,adult (Primary Dx); Attention deficit hyperactivity disorder (ADHD), combined type; Bruising 08/19/2025 Results Follow-Up [facility] Primary Care at [address] [phone] Rose Caballero NP Protime-INR, aPTT 08/17/2025 Orders Only [facility] [address] [place] [address] Advanced Medicine [address] [place] [phone] Maria Luz Willis MD Lumbar facet arthropathy (Primary Dx) 08/16/2025 Telephone [facility] [address] [place] [address] Advanced Medicine [address] [place] [phone] Maria Luz Willis MD Post-Op Call 08/15/2025 3:36 PM CDT - 08/15/2025 11:59 PM CDT Hospital Encounter [facility] Advanced Medicine [address] [place] [address] Maria Luz Willis MD Lumbar facet arthropathy Discharge Disposition: Discharge to home or self care 08/10/2025 Telephone [facility] [address] [place] [address] Advanced Medicine [address] [place] [address] Maria Luz Willis MD PMC Pre procedure instructions 08/09/2025 Results Follow-Up [facility] Primary Care at [address] [phone] Migdalia Mcdonald NP CBC with auto differential, Comprehensive metabolic panel, Lipid panel, Additional followed-up results: 3 08/05/2025 10:30 AM CDT Lab [address] [address] Primary hypertension 08/03/2025 Orders Only [facility] Primary Care at [address] [phone] Migdalia Mcdonald NP Primary hypertension (Primary Dx) 07/15/2025 11:58 AM CDT - 07/15/2025 11:59 PM CDT Hospital Encounter [facility] Advanced Medicine [address] [place] [address] Maria Luz Willis MD Lumbar facet arthropathy (Primary Dx); Chronic bilateral low back pain, unspecified whether sciatica present Discharge Disposition: Discharge to home or self care 07/15/2025 Telephone [facility] Primary Care at [address] [phone] Migdalia Mcdonald NP Sep 09 appt with Migdalia Mcdonald changed to virtual 06/13/2025 Telephone [facility] [address] [facility] 1[address] [place] [address] Aissatou Girard MD 06/13/2025 Results Follow-Up [facility] Primary Care at [address] [phone] Shanell Oquendo NP MRI Pelvis SI Joints WO Contrast, MRI Lumbar Spine WO Contrast 06/10/2025 7:23 PM CDT - 06/10/2025 11:59 PM CDT Hospital Encounter [facility] [address] [place] [phone] Chronic lumbar radiculopathy; Central annular tear of intervertebral disc Discharge Disposition: Discharge to home or self care 06/03/2025 10:00 AM CDT Office Visit [facility] Primary Care at [address] [place] [address] Rose Caballero NP BMI 26.0-26.9,adult (Primary Dx); Chronic lumbar radiculopathy; Central annular tear of intervertebral disc; Chronic SI joint pain from Last 3 Months Immunizations Immunization Administration Dates Next Due Influenza, Unspecified 11/03/2023(Deferr ed: Patient Refused),07/10/2023(Deferred: Patient Refused),12/02/2022,11/22/2022(Deferred: Patient Refused),11/17/2022(Deferred: Patient Refused),11/22/2021(Deferred: Patient Refused) PPD TEST 08/09/2013 Tdap 06/25/2024 Surgical History Surgery Date Site/Laterality Comments KNEE SURGERY 11/17/1994 - 11/16/1995 3 BREAST BIOPSY 12/02/2019 Right Medical History Medical History Date Comments Head ache Family History Medical History Relation Name Comments Hypertension Father Cancer Maternal Grandfather Hypertension Mother Breast cancer Other maternal aunt Relation Name Status Comments Father Alive Maternal Grandfather Mother Alive Other maternal aunt Social History Tobacco Use Types Packs/Day Years Used Date Smoking Tobacco: Never Passive Smoke Exposure: Never Smokeless Tobacco: Never Tobacco Cessation:Counseling Given: Not Answered Alcohol Use Standard Drinks/Week Comments Yes 0 [...] on file Legal Sex Female 10:33 PM PROTOHISTORIAN Gender Identity Female 02/10/2025 12:31 PM CDT Sexual Orientation Straight 02/10/2025 12 :31 PM CDT Obstetrics History Last Filed Vital Signs Vital Sign Reading Time Taken Comments Blood Pressure 120/90 08/19/2025 8:52 AM CDT Pulse 78 08/19/2025 8:52 AM CDT Temperature 36.3 C (97.3 F) 08/19/2025 8:52 AM CDT Respiratory Rate 16 08/19/2025 8:52 AM CDT Oxygen Saturation 99% 08/19/2025 8:52 AM CDT Inhaled Oxygen Concentration - - Weight 64 kg (141 lb) 08/19/2025 8:52 AM CDT Height 152.4 cm (5') 08/19/2025 8:52 AM CDT Body Mass Index 27.54 08/19/2025 8:52 AM CDT Plan of Treatment Health Maintenance Due Date Last Done Comments Cervical Cancer Screening 10/22/2025 10/22/2024, 10/2024 Regular Well Visit/Exam 18-64 12/02/2025 12/02/2024 Breast Cancer Screening-Mammogram 02/04/2026 02/04/2025, 02/02/2024 Influenza Vaccine (#1) 2026 12/02/2022 Postp oned from 07/18/2025 (Patient declined, but will receive in the future) Depression Screening 08/19/2026 08/19/2025, 06/03/2025, 01/07/2025, Additional history exists Colon Cancer Screening-DNA Stool 12/07/2026 12/07/2023 DTaP/Tdap/Td Vaccine (2 - Td or Tdap) 06/25/2034 06/25/2024 HPV Vaccines Aged Out No longer eligi ble based on patient's age to complete this topic Hepatitis B Screening Discontinued Hepatitis C Screening Discontinued Pneumococcal vaccine <65 Aged Out No longer eligible based on patient's age to complete this topic Goals Goal Patient Goal Type Associated Problems Recent Progress Patient-Stated? Author CCM Chronic Pain Care Plan Chronic Care Management No change(08/15 3:49 PM CDT) Paco Smiley, RN Note: Problem: Chronic Pain Goals: 1. Minimize further functional decline 2. Maximize quality of life 3. Control pain Strategies: - Activity/exercise program recommendation - Conservative stepwise pain medicine strategy with multi-disciplinary approach - Recommend healthy lifestyle strategies and compensatory methods as needed Procedures Procedure Name Priority Date/Time Associated Diagnosis Comments APTT Routine 08/19/2025 9:32 AM CDT [place] PROTIME-INR Routine 08/19/2025 9:32 AM CDT [place] VON WILLEBRAND FACTOR ACTIVITY (SCREEN) Routine 08/19/2025 9:32 AM CDT [place] PAIN MGMT IMAGING LUMBAR/SACRAL FACET/ MEDIAL BRANCH BLOCK BILATERAL Schedule Routine, Read Routine (OP Routine) 08/15/2025 4:27 PM CDT Lumbar facet arthropathy EGFR Routine 08/05/2025 10:30 AM CDT Primary hypertension DIFFERENTIAL AUTO Routine 08/05/2025 10:30 AM CDT Primary hypertension THYROID FUNCTION CASCADE Routine 08/05/2025 10:30 AM CDT Primary hypertension LIPID PANEL Routine 08/05/2025 10:30 AM CDT Primary hypertension COMPREHENSIVE METABOLIC PANEL Routine 08/05/2025 10:30 AM CDT Primary hypertension CBC WITH AUTO DIFFERENTIAL Routine 08/05/2025 10:30 AM CDT Primary hypertension MRI PELVIS SI JOINTS WO CONTRAST Schedule Routine, Read Routine (OP Routine) 06/10/2025 8:31 PM CDT Chronic SI joint pain MRI LUMBAR SPINE WO CONTRAST Schedule Routine, Read Routine (OP Routine) 06/10/2025 8:31 PM CDT Chronic lumbar radiculopathy Central annular tear of intervertebral disc HM MAMMOGRAPHY Routine 02/04/2025 9:41 AM CDT HM PAP SMEAR Routine 06/28/2024 1:57 PM CDT STOOL DNA COLOGUARD Routine 12/07/2023 12:05 PM PROTOHISTORIAN Colon cancer screening from Last 3 Months or Most Recently Relevant to Health Maintenance Results * Von Willebrand factor activity (08/19/2025 9:32 AM CDT) vWF activity 91 50 - 180 %norm Comment: Interpretive Data Von Willebrand factor (vWF) has two major physiologic functions: transporting factor VIII and adhering to platelets and collagen at sites of vascular injury. Screening tests for von Willebrand disease (vWD) include measuring vWF antigen concentration, plasma factor VIII activity, and in-vitro tests of vWF activity. An automated immunoassay (Instrumentation Laboratory von Willebrand factor activity: IL vWF act), is a sensitive screening test for vWF adhesion to platelets. Using a monoclonal antibody specific for the platelet binding domain of vWF, the IL vWF act test shows excellent discrimination between control and patients with vWF(1, 2). The IL vWF activity reference interval (based on healthy adult sample) is 50%-180%. To enhance specificity and minimize false positive results, if a patient has an IL vWF activity below 50%, the reflex confirmatory activity test (vWF GP1bM) will be sent to [facility] reference laboratory in [place], [place] (3). 1. Johnie MENDOZA, gunjan STARK. A new automated screening assay for the diagnosis of von Willebrand disease. Am J Clin Path. 2007; 127:730-5. 2. Jacqueline D, Tomas YU, Domi BJ, Frances RK, Eric COTA, Kodi JA. Validation of an automated latex particle-enhanced immunoturbidimetric von Willebrand factor activity assay. J Thromb Haemost. 2011; 9:6321-3046. 3. Omar Stevens et al. A comparative analysis of different automated von Willebrand factor glycoprotein 1b-binding activity assays in well-typed von Willebrand disease patients. J Thromb Haemost 2018;16:1268-77. Current interpretive data was last revised on 2022. Testing performed by: [facility], [address] [place]., [address] Blood 08/19/2025 9:32 AM CDT 08/19/2025 1:14 PM CDT [facility] LAB BLOOD ORDERABLES Final Re sult Performing Organization Address [facility] de Phone Number [address] [place] [address] * aPTT (08/19/2025 9:32 AM CDT) aPTT 29 22 - 37 sec Comment: Interpretive data aPTT test has not been evaluated for monitoring heparin therapy. The anti-Xa is the preferred test. Current interpretive data was last revised on 2019. Blood 08/19/2025 9:32 AM CDT 08/19/2025 10:41 AM CDT [facility] LAB BLOOD ORDERABLES Final Re sult Performing Organization Address [facility] Co de Phone Number [facility] [address] [facility] [place] [address] * Protime-INR (08/19/2025 9:32 AM CDT) PT 13.20 12.00 - 14.60 sec INR 0.99 0.90 - 1.20 [facility] Comment: Interpretive data Oral anticoagulant therapeutic ranges: Venous thromboembolism prophylaxis or treatment: 2.0-3.0 CARDIOLOGY Standard range: 2.0-3.0 High-intensity range: 2.5-3.5 Refer to indication-specific guidelines for appropriate target ranges for prosthetic heart valve replacement. Current interpretive data was last revised on 2019. Blood 08/19/2025 9:32 AM CDT 08/19/2025 10:41 AM CDT Rose Caballero CANDY COUNTER CLERK LAB BLOOD ORDERABLES Final Re sult Performing Organization Address City/[facility]/ZIP Co de Phone Number [facility] [address] [facility] Department [place] [address] * Imaging Lumbar/Sacral Facet Medial Branch Block Bilateral (276[address]) (08/15/2025 4:27 PM CDT) Narrative [facility] - 08/15/2025 4:27 PM CDT The images from this study are not interpreted by Radiology. Please refer to the physician's procedure / OR operative note. Herrera Engle MD IMG PAIN MGMT PROCEDURES Final R esult Performing Organization Address [facility] Co de Phone Number [email or web address] * eGFR (08/05/2025 10:30 AM CDT) eGFR 66 >=60 mL/min/1. 73 m2 Comment: Interpretive Data Reference Interval Normal >/= 90 mL/min/1.73m2 Mildly decreased* 60 - 89 mL/min/1.73m2 Mildly to moderately decreased 45 - 59 mL/min/1.73m2 Moderately to severely decreased 30 - 44 mL/min/1.73m2 Severely decreased 15 - 29 mL/min/1.73m2 Kidney Failure < 15 mL/min/1.73m2 *Relative to young adult level Estimated glomerular filtration rate is determined by the 2020 CKD-EPI equation recommended by the National Kidney Foundation (A Unifying Approach to GFR Estimation: Recommendations of the NKF-ASK Task Force on Reassessing the Inclusion of Race in Diagnosing Kidney Disease, JASN 2020). The CKD-EPI equation should not be used for patients with unstable renal function and has not been validated in children and those over 70. Current interpretive data was last reviewed 2021. Blood 08/05/2025 10:3 0 AM CDT 08/05/2025 1:45 PM CDT Migdalia Mcdonald CANDY COUNTER CLERK LAB BLOOD ORDERABLES Final Resul t [facility] [address] [facility] Department [place] [address] * Differential, auto (08/05/2025 10:30 AM CDT) Pathologist [facility] Neutrophil abs 3.34 1.50 - 6.50 K/cumm Imm gran abs 0.01 0.00 - 0.10 K/cumm [facility] Lymphocyte abs 1.97 0.80 - 3.30 K/cumm [facility] Monocyte abs 0.44 0.20 - 0.80 K/cumm [facility] Eosinophil abs 0.18 0.00 - 0.50 K/cumm [facility] Basophil abs 0.07 0.00 - 0.10 K/cumm [facility] Neutrophil pct 55.5 % [facility] Comment: Interpretive Data Percent cell count reference ranges are not reported, since discordance with absolute values may lead to misinterpretation of CBC data. Current Interpretive Data was last revised on 2018. Imm gran pct 0.2 % [facility] Comment: Interpretive Data Percent cell count reference ranges are not reported, since discordance with absolute values may lead to misinterpretation of CBC data. Current Interpretive Data was last revised on 2018. Lymphocyte pct 32.8 % [facility] Comment: Interpretive Data Percent cell count reference ranges are not reported, since discordance with absolute values may lead to misinterpretation of CBC data. Current Interpretive Data was last revised on 2018. Monocyte pct 7.3 % [facility] Comment: Interpretive Data Percent cell count reference ranges are not reported, since discordance with absolute values may lead to misinterpretation of CBC data. Current Interpretive Data was last revised on 2018. Eosinophil pct 3.0 % [facility] Comment: Interpretive Data Percent cell count reference ranges are not reported, since discordance with absolute values may lead to misinterpretation of CBC data. Current Interpretive Data was last revised on 2018. Basophil pct 1.2 % [facility] Comment: Interpretive Data Percent cell count reference ranges are not reported, since discordance with absolute values may lead to misinterpretation of CBC data. Current Interpretive Data was last revised on 2018. Blood 08/05/2025 10:3 0 AM CDT 08/05/2025 1:45 PM CDT Migdalia Mcdonald CANDY COUNTER CLERK LAB BLOOD ORDERABLES Final Resul t Performing Organization Address City/[facility] Co de Phone Number [address] [place] [address] * Thyroid Function [place] (08/05/2025 10:30 AM CDT) [facility] TSH 0.90 0.30 - 4.20 mcIUnit/mL Blood 08/05/2025 10:3 0 AM CDT 08/05/2025 1:45 PM CDT Migdalia Mcdonald CANDY COUNTER CLERK LAB BLOOD ORDERABLES Final Resul t Performing Organization Address [facility] de Phone Number [address] [place] [address] * (ABNORMAL) CBC with auto differential (08/05/2025 10:30 AM CDT) [facility] WBC 6.01 3.80 - 9.90 K/cumm Hgb 12.5 11.9 - 15.5 g/dL [facility] Hct 37.2 35.6 - 45.5 % [facility] Plt 344 150 - 400 K/cumm [facility] MPV 8.7(L) 9.1 - 12.3 fL [facility] RBC 3.92 3.90 - 5.20 M/cumm [facility] MCV 94.9 81.3 - 96.4 fL [facility] MCH 31.9 27.1 - 33.3 pg [facility] MCHC 33.6 32.3 - 35.7 g/dL [facility] RDW CV 11.6 11.1 - 14.9 % [facility] RDW SD 39.9 35.7 - 48.1 fL [facility] NRBC abs 0.00 0.00 - 0.01 K/cumm [facility] Blood 08/05/2025 10:3 0 AM CDT 08/05/2025 1:45 PM CDT us Migdalia Mcdonald CANDY COUNTER CLERK LAB BLOOD ORDERABLES Final Resul t [facility] [address] [facility] Department [place] [address] * (ABNORMAL) Lipid panel (08/05/2025 10:30 AM CDT) Cholesterol 216(H) 30 - 199 mg/dL Comment: Interpretive Data Ages < or = 19 years Acceptable: <170 mg/dL Borderline high: 170-199 mg/dL High: >or= 200 mg/dL Ages > or = 20 years Desirable: <200 mg/dL Borderline high: 200-239 mg/dL High: >or= 240 mg/dL Literature References: 1. Expert Panel on Integrated Guidelines for Cardiovascular Health and Risk Reduction in Children and Adolescents. Pediatrics 2011;128:S213 2. NCEP Expert Panel. Circulation 2004;110:227 Current Interpretive Data was last revised on 2018. Triglycerides 112 <=149 mg/dL [facility] Comment: Interpretive Data Ages < or = 9 years Acceptable: <75 mg/dL Borderline high: 75-99 mg/dL High: >or= 100 mg/dL Ages 10 to 20 years Acceptable: <90 mg/dL Borderline high: 90-129 mg/dL High: >or= 130 mg/dL Ages > or = 20 years Desirable: <150 mg/dL Borderline high: 150-199 mg/dL High: 200-499 mg/dL Very high: >or= 499 mg/dL Literature References: 1. Expert Panel on Integrated Guidelines for Cardiovascular Health and Risk Reduction in Children and Adolescents. Pediatrics 2011;128:S213 2. NCEP Expert Panel. Circulation 2004;110:227 Current Interpretive Data was last revised on 2018. HDL 59 >=40 mg/dL [facility] Comment: Interpretive Data Ages < or = 19 years Acceptable: >45 mg/dL Borderline low: 40-45 mg/dL Low: <40 mg/dL Ages > or = 20 years Desirable: >or= 60 mg/dL Low: <40 mg/dL Literature References: 1. Expert Panel on Integrated Guidelines for Cardiovascular Health and Risk Reduction in Children and Adolescents. Pediatrics 2011;128:S213 2. NCEP Expert Panel. Circulation 2004;110:227 Current Interpretive Data was last revised on 2018. LDL, calculated 137(H) <=129 mg/dL [facility] Comment: Interpretive Data Ages < or = 19 years Acceptable: <110 mg/dL Borderline high: 110-129 mg/dL High: >or= 130 mg/dL Ages > or = 20 years Optimal: <100 mg/dL Near optimal: 100-129 mg/dL Borderline high: 130-159 mg/dL High: >160 mg/dL Calculated using the Miguel A LDL-C estimating equation. This equation was implemented on 2024. Prior to this date LDL-C was estimated using the Friedewald equation. Literature References: 1. Expert Panel on Integrated Guidelines for Cardiovascular Health and Risk Reduction in Children and Adolescents. Pediatrics 2011;128:S213 2. NCEP Expert Panel. Circulation 2004;110:227 3. Miguel A M et al. LUCIA Cardiol. 2019March 17;5(5):540-548. doi: 10.1001/[email or web address] Current Interpretive Data was last revised on 2024. Non-HDL Cholesterol 157 mg/dL [facility] Comment: Interpretive Data Ages < or = 19 years Acceptable: <120 mg/dL Borderline high: 120-144 mg/dL High: >145 mg/dL Ages > or = 20 years When triglycerides are >200 mg/dL, Non-HDL cholesterol is a secondary target of therapy with treatment goals that are 30 mg/dL greater than the LDL cholesterol target. Literature References: 1. Expert Panel on Integrated Guidelines for Cardiovascular Health and Risk Reduction in Children and Adolescents. Pediatrics 2011;128:S213 2. NCEP Expert Panel. Circulation 2004;110:227 Current Interpretive Data was last revised on 2018. Chol/HDL ratio 4 [facility] Blood 08/05/2025 10:3 0 AM CDT 08/05/2025 1:45 PM CDT Migdalia Mcdonald CANDY COUNTER CLERK LAB BLOOD ORDERABLES Final Resul t Performing Organization Address City/[facility] Co de Phone Number [facility] [address] [facility] Department [place] [address] * (ABNORMAL) Comprehensive metabolic panel (08/05/2025 10:30 AM CDT) Sodium 141 135 - 145 mmol/L Potassium, pl 4.5 3.3 - 4.9 mmol/L [facility] Chloride 105 97 - 110 mmol/L [facility] CO2 27 22 - 32 mmol/L [facility] Anion gap 9 2 - 15 mmol/L [facility] BUN 23 6 - 25 mg/dL [facility] Creatinine 1.06 0.60 - 1.10 mg/dL [facility] Glucose 91 70 - 199 mg/dL [facility] Comment: Interpretive Data Fasting glucose >/= 126 mg/dl is diagnostic for diabetes. Fasting is defined as no caloric intake for at least 8 hours. Fasting glucose between 100 mg/dl to 125 mg/dl is diagnostic of prediabetes. In a patient with classic symptoms of hyperglycemia or hyperglycemic crisis, a random glucose >/= 200 mg/dl is diagnostic for diabetes. In the absence of unequivocal hyperglycemia, results should be confirmed by repeat testing. The classification and Diagnosis of Diabetes Diabetes Care 202; 46: S19-S40. Current interpretive data was last revised 2022. Calcium 9.2 8.5 - 10.3 mg/dL [facility] Bilirubin, total 1.0 0.1 - 1.2 mg/dL [facility] Protein, pl 6.4(L) 6.5 - 8.5 g/dL [facility] Albumin 4.0 3.5 - 5.0 g/dL [facility] Alk phos 56 40 - 130 Units/L [facility] ALT 8 7 - 45 Units/L [facility] AST 17 10 - 45 Units/L [facility] Blood 08/05/2025 10:3 0 AM CDT 08/05/2025 1:45 PM CDT us Migdalia Mcdonald CANDY COUNTER CLERK LAB BLOOD ORDERABLES Final Resul t [facility] [address] [facility] Department [place] [address] * MRI Pelvis SI Joints WO Contrast (06/10/2025 8:31 PM CDT) Anatomical Region Laterality Modality Pelvis N/A Magnetic Resonan ce 06/11/2025 8:19 AM CDT Impressions 06/11/2025 8:19 AM CDT 1. Normal MR examination of the pelvis and sacroiliac joints. Electronically signed by: Ez Ellsworth M.D. Narrative 06/11/2025 8:19 AM CDT EXAMINATION: 1. MRI pelvis and sacroiliac joints without contrast HISTORY: Back and sacroiliac pain. FINDINGS: Comparison studies are not available. MR examination of the pelvis was performed with a multi-coil ray. Coronal short TR/TE and STIR images and transverse short TR/TE and fast spin echo images of the pelvis were obtained without contrast. Small tktes-nw-zide oblique coronal and axial images of the sacroiliac joints were obtained. The marrow signal of the lower lumbar spine, sacrum, pelvis, and proximal femora is normal. Specifically, there is no evidence of a fracture, stress fracture, or femoral head avascular necrosis. The joint spaces are normal. There is a physiologic amount of fluid within each hip joint. The sacroiliac joints are normal. The musculature of the pelvis and proximal femora is symmetric and normal in bulk. The adductor and gluteal tendons and musculature are normal. The piriformis muscles are symmetric. The sciatic nerves are normal in course and morphology. The hamstring origins are normal. There is no evidence of bursitis. Limited evaluation of the pelvis demonstrates no mass, lymphadenopathy, or free fluid.. Procedure Note Ez Ellsworth MD - 06/11/2025 EXAMINATION: 1. MRI pelvis and sacroiliac joints without contrast HISTORY: Back and sacroiliac pain. FINDINGS: Comparison studies are not available. MR examination of the pelvis was performed with a multi-coil ray. Coronal short TR/TE and STIR images and transverse short TR/TE and fast spin echo images of the pelvis were obtained without contrast. Small dpwmo-kh-sfxv oblique coronal and axial images of the sacroiliac joints were obtained. The marrow signal of the lower lumbar spine, sacrum, pelvis, and proximal femora is normal. Specifically, there is no evidence of a fracture, stress fracture, or femoral head avascular necrosis. The joint spaces are normal. There is a physiologic amount of fluid within each hip joint. The sacroiliac joints are normal. The musculature of the pelvis and proximal femora is symmetric and normal in bulk. The adductor and gluteal tendons and musculature are normal. The piriformis muscles are symmetric. The sciatic nerves are normal in course and morphology. The hamstring origins are normal. There is no evidence of bursitis. Limited evaluation of the pelvis demonstrates no mass, lymphadenopathy, or free fluid.. IMPRESSION: 1. Normal MR examination of the pelvis and sacroiliac joints. Electronically signed by: Ez Ellsworth M.D. Rose Caballero NP IMG MRI PROCEDURES Final Resu lt * MRI Lumbar Spine WO Contrast (06/10/2025 8:31 PM CDT) Anatomical Region Laterality Modality Spine N/A Magnetic Resonan ce 06/11/2025 1:00 PM CDT Impressions 06/11/2025 1:25 PM CDT 1. Multilevel degenerative changes of the lumbar spine with up to moderate right neural foraminal stenosis at L4-L5. 2. Findings of right greater than left acute facet arthropathy at L4-L5 with a small synovial cyst at the L4-L5 facet joint. Dictated by: Wolf Rodriguez MD The radiology attending physician has personally reviewed this study, and had reviewed and/or edited this written report and agrees with it. Electronically signed by: Meena Segundo M.D. Narrative 06/11/2025 1:25 PM CDT EXAMINATION: Magnetic resonance imaging (MRI) of the lumbar spine without contrast HISTORY: Lumbar radiculopathy TECHNIQUE: Multiplanar multi-weighted MRI of the lumbar spine was performed without intravenous contrast using the standard protocol. COMPARISON: MRI 08/12/2023 . Plain film of the lumbar spine dated 07/10/2023. FINDINGS: The alignment of the lumbar spine is normal. Vertebral bodies demonstrate normal signal intensity on all sequences. There are no compression fractures. The conus medullaris terminates at the level of L2 inferior cortex.. The distal spinal cord signal intensity is normal. Mild multilevel disc height loss and desiccation. Annular fissure at L5-S1. Limited views of the abdomen and pelvis show no soft tissue abnormality. The aorta is normal. There is STIR hyperintensity at the right greater than left L4-L5 facet joint with a 3 mm right synovial cyst at this level. Axial: L1-L2: The disc is normal in configuration. There is no facet arthropathy. There is no neuroforaminal stenosis. There is no spinal canal stenosis. L2-L3: The disc is normal in configuration. There is mild bilateral facet arthropathy. There is no neuroforaminal stenosis. There is no spinal canal stenosis. L3-L4: Mild diffuse disc bulge. There is mild right, moderate left facet arthropathy with left ligamentum flavum infolding. There is mild bilateral neuroforaminal stenosis. There is no spinal canal stenosis. L4-L5: Diffuse disc bulge. There is severe right, moderate left facet arthropathy. There is moderate right, mild left neuroforaminal stenosis. There is a spinal canal stenosis. L5-S1: Diffuse disc bulge. There is no facet arthropathy. There is mild bilateral neuroforaminal stenosis. There is no spinal canal stenosis. Procedure Note Ari Segundo, Meena Ojeda MD - 06/11/2025 EXAMINATION: Magnetic resonance imaging (MRI) of the lumbar spine without contrast HISTORY: Lumbar radiculopathy TECHNIQUE: Multiplanar multi-weighted MRI of the lumbar spine was performed without intravenous contrast using the standard protocol. COMPARISON: MRI 08/12/2023 . Plain film of the lumbar spine dated 07/10/2023. FINDINGS: The alignment of the lumbar spine is normal. Vertebral bodies demonstrate normal signal intensity on all sequences. There are no compression fractures. The conus medullaris terminates at the level of L2 inferior cortex.. The distal spinal cord signal intensity is normal. Mild multilevel disc height loss and desiccation. Annular fissure at L5-S1. Limited views of the abdomen and pelvis show no soft tissue abnormality. The aorta is normal. There is STIR hyperintensity at the right greater than left L4-L5 facet joint with a 3 mm right synovial cyst at this level. Axial: L1-L2: The disc is normal in configuration. There is no facet arthropathy. There is no neuroforaminal stenosis. There is no spinal canal stenosis. L2-L3: The disc is normal in configuration. There is mild bilateral facet arthropathy. There is no neuroforaminal stenosis. There is no spinal canal stenosis. L3-L4: Mild diffuse disc bulge. There is mild right, moderate left facet arthropathy with left ligamentum flavum infolding. There is mild bilateral neuroforaminal stenosis. There is no spinal canal stenosis. L4-L5: Diffuse disc bulge. There is severe right, moderate left facet arthropathy. There is moderate right, mild left neuroforaminal stenosis. There is a spinal canal stenosis. L5-S1: Diffuse disc bulge. There is no facet arthropathy. There is mild bilateral neuroforaminal stenosis. There is no spinal canal stenosis. IMPRESSION: 1. Multilevel degenerative changes of the lumbar spine with up to moderate right neural foraminal stenosis at L4-L5. 2. Findings of right greater than left acute facet arthropathy at L4-L5 with a small synovial cyst at the L4-L5 facet joint. Dictated by: Wolf Rodriguez MD The radiology attending physician has personally reviewed this study, and had reviewed and/or edited this written report and agrees with it. Electronically signed by: Meena Segundo M.D. Rose Caballero CANDY COUNTER CLERK IMG MRI PROCEDURES Final Resu lt * HM MAMMOGRAPHY (02/04/2025 9:41 AM CDT) Breanna Reyes NP HEALTH MAINTENANCE Final Re sult * HM PAP SMEAR (06/28/2024 1:57 PM CDT) Historical Provider HEALTH MAINTENANCE Final Result * Stool DNA - Cologuard (12/07/2023 12:05 PM PROTOHISTORIAN) Stool DNA - Cologuard Negative Negative [facility] (CLIA #:[id number]) Comment: NEGATIVE TEST RESULT. A negative Cologuard result indicates a low likelihood that a colorectal cancer (CRC) or advanced adenoma (adenomatous polyps with more advanced pre-malignant features) is present. The chance that a person with a negative Cologuard test has a colorectal cancer is less than 1 in 1500 (negative predictive value >99.9%) or has an advanced adenoma is less than 5.3% (negative predictive value 94.7%). These data are based on a prospective cross-sectional study of 10,000 individuals at average risk for colorectal cancer who were screened with both Cologuard and colonoscopy. (Adis Colindres al, N Engl J Med 2014;370(14):4289-7452) The normal value (reference range) for this assay is negative. COLOGUARD RE-SCREENING RECOMMENDATION: Periodic colorectal cancer screening is an important part of preventive healthcare for asymptomatic individuals at average risk for colorectal cancer. Following a negative Cologuard result, the [place] [employer] and U.S. Multi-Society Task Force screening guidelines recommend a Cologuard re-screening interval of 3 years. References: [place] [employer] Guideline for Colorectal Cancer Screening: https://www.cancer.org/cancer/vbake-gagrka-fflxsr/bznpvcfmo-wrjsgfzdi-hjyrliy/ac s-rec ommendations.html.; Ruben DK, Yanet CORDERO, Yennifer AvendañoK, Colorectal Cancer Screening: Recommendations for Physicians and Patients from the U.S. Multi-Society Task Force on Colorectal Cancer Screening , Am J Gastroenterology 2017; 112:0011-1257. TEST DESCRIPTION: Composite algorithmic analysis of stool DNA-biomarkers with hemoglobin immunoassay. Quantitative values of individual biomarkers are not reportable and are not associated with individual biomarker result reference ranges. Cologuard is intended for colorectal cancer screening of adults of either sex, 45 years or older, who are at average-risk for colorectal cancer (CRC). Cologuard has been approved for use by the U.S. FDA. The performance of Cologuard was established in a cross sectional study of average-risk adults aged 50-84. Cologuard performance in patients ages 45 to 49 years was estimated by sub-group analysis of near-age groups. Colonoscopies performed for a positive result may find as the most clinically significant lesion: colorectal cancer [4.0%], advanced adenoma (including sessile serrated polyps greater than or equal to 1cm diameter) [20%] or non- advanced adenoma [31%]; or no colorectal neoplasia [45%]. These estimates are derived from a prospective cross-sectional screening study of 10,000 individuals at average risk for colorectal cancer who were screened with both Cologuard and colonoscopy. (Adis Colindres al, N Engl J Med 2014;370(14):0514-2365.) Cologuard may produce a false negative or false positive result (no colorectal cancer or precancerous polyp present at colonoscopy follow up). A negative Cologuard test result does not guarantee the absence of CRC or advanced adenoma (pre-cancer). The current Cologuard screening interval is every 3 years. ([place] [employer] and U.S. Multi-Society Task Force). Cologuard performance data in a 10,000 patient pivotal study using colonoscopy as the reference method can be accessed at the following location: www.[employer]/results. Additional description of the Cologuard test process, warnings and precautions can be found at www.cologuard.com. Stool 12/07/2023 12:0 5 PM PROTOHISTORIAN 12/09/2023 3:03 PM PROTOHISTORIAN Migdalia Mcdonald NP LAB BODY FLUIDS AND STOOLS ORDER JONG Final Result [employer] (CLIA #:[id number]) [place] [address] from Last 3 Months or Most Recently Relevant to Health Maintenance Insurance [facility] CHOICE [facility] [employer] [facility] CHO[facility] CHOICE PLUS IDPA Care Teams Dolphin Researcher Relationship Specialty Start Date End Date Migdalia Mcdonald NP [address] [facility] [address] [place] [address] PCP - General Family Medicine 11/22/22 Shira Campbell MD [address] [facility] [address] [place] [address] Referring Physician Gynecology 11/22/22 Kirsten Pena NP [address] [facility] [place] [address] Nurse Practitioner Psychiatry 11/22/22 Delfino Pozo MD [address] [facility], [facility] [address] [place] [address] Consulting Physician Pain Management 09/12/23 Mike Rhoades MD [address] [facility] [address] [place] [address] Consulting Physician Family Medicine 10/24/23
--- OUTSIDE RECORDS SUMMARY | 2025-08-24 01:58 | XMS_ITS | Clinical Summary ---
Author Organization [facility] Address [address] [place] [address] Phone Care Team Providers Care Resawyer Name Role Phone Unavailable Primary Care Provider Unavailabl e Allergies Active Allergy Reactions Criticality Noted Date Comments Morphine Hallucination Medium 06/14/20221993 Medications oxyCODONE-acetami nophen (Percocet) 5-325 mg tabletIndications :Elective procedure for unacceptable cosmetic appearance Take 1 Tablet by mouth every 4 hours as needed for moderate pain. Max Daily Amount: 6 Tablets 20 Tablet 06/21/2022 12:40 PM CDT 2 Active gabapentin (Neurontin) 300 mg capsule Take 1 Capsule (300 mg) by mouth 2 times daily. 30 Capsule 06/21/2022 12:40 PM CDT 2 Active Social History Tobacco Use Types Packs/Day Years Used Date Smoking Tobacco: Never Smokeless Tobacco: Never Alcohol Use Standard Drinks/Week Comments Yes 0 (1 standard drink = 0.6 oz pur e alcohol) rarely Comments No Sex and Gender Information Value Date Recorded Sex Assigned at Not on file Legal Sex Female 12:52 PM CDT Gender Identity Not on file Sexual Orientation Not on file Last Filed Vital Signs Vital Sign Reading Time Taken Comments Blood Pressure 149/70 06/21/2022 12:22 PM CDT Pulse 80 06/21/2022 12:22 PM CDT Temperature 36.9 C (98.4 F) 06/21/2022 9:03 AM CDT Respiratory Rate 20 06/21/2022 12:22 PM CDT Oxygen Saturation 94% 06/21/2022 12:22 PM CDT Inhaled Oxygen Concentration - - Weight 66.2 kg (146 lb) 06/20/2022 2:16 PM CDT Height 152.4 cm (5') 06/20/2022 2:16 PM CDT Body Mass Index 28.51 06/20/2022 2:16 PM CDT Plan of Treatment Health Maintenance Due Date Last Done Comments DTAP/TDAP/TD VACCINES (1 - Tdap) 1997 HEPATITIS B VACCINES (1 of 3 - 19+ 3-dose series) 1997 HPV/Cotest (21-29) 1999 CERVICAL CANCER SCREENING 2008 HPV/Cotest (30-65) 2008 PAP SMEAR 2008 BREAST CANCER SCREENING 2018 COLORECTAL SCREENING 2023 Colorectal Cancer Screening 2023 FIT-DNA Q 3 years 2023 FIT/FOBT Q 1 year 2023 Flex Sig/CT Colonography Q 5 years 2023 INFLUENZA VACCINE (#1) 2025 HPV VACCINES Aged Out No longer eligi ble based on patient's age to complete this topic Insurance [place] [id number] RX [employer] Member Subscriber Plan / Payer (Ef fective 2022-Present) Name:MiloGueroRose Relation to Subscriber:Self Name:Milo Rose Subscriber ID:Not on file Payer ID:Not on file Group ID:[id number] Type:RX Commercial Address: [address] Advance Directives For more information, please contact: [phone] * Full Code (Latest Code Status on File) Date Activated Date Inactivated Comments 06/20/2022 1:37 PM 06/21/2022 3:40 PM
[2025-08-24 02:00] VITALS: BP 127/64; PULSE 76; RESP 18; TEMP 36.2; O2SAT 100
--- NOTE | 2025-08-24 03:15 | PC.NURSE ---
patient approached triage desk stating that she was going to leave due to wait times and follow up with her pcp today. Pt ambulated to ED exit with steady gait and no signs for concern at this time.
== END 2025-08-24 03:15 | disposition left against medical advice (07) ==
PROVIDERS: PCP Nurse Practitioner Family
DX: H57.8A9 Foreign body sensation, unspecified eye (principal)
CPT/HCPCS: 99199